=== PATIENT | female | born 1995 | race Caucasian/White ===

== ENCOUNTER 2018-05-09 18:46 | Emergency (ER) | END 2018-05-09 23:13 | disposition home or self-care (01) ==

== ENCOUNTER 2019-06-07 22:53 | Emergency (ER) | payer OTHER ==
[~2019-06-07] VITALS: Ht 160 cm; Wt 50.4 kg
[~2019-06-07 22:53] MED LIST: ACET325T33 PO; CYCL10TA7 PO; FAMO-96 PO; IBUP-1542 PO; NITR-58 PO
[2019-06-07 23:00] VITALS: PULSE 88; Ht 160 cm; Wt 50.4 kg
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
[2019-06-08] MEDS ORDERED: HYDROCODONE/APAP (5/325) TAB PO ONE (03:00)
[2019-06-08 03:25] VITALS: BP 122/74; RESP 16
== END 2019-06-08 03:25 | disposition home or self-care (01) ==
LOC: FTE 22:53
DX: S06.0X0A Concussion without loss of consciousness, initial encounter (principal); S10.93XA Contusion of unspecified part of neck, initial encounter; R07.89 Other chest pain; V43.52XA Car driver injured in collision with other type car in traffic accident, initial encounter
CPT/HCPCS: 70450; 70486; 71046; 72125; 81025; Z7502; Z7610